=== PATIENT | female | born 1965 | race Caucasian/White ===

== ENCOUNTER 2024-02-22 00:30 | Inpatient (IN) ==
[2024-02-22 00:58] LABS: ABS Basophils 0.1 10^3/uL (0.0-0.1); ABS Eosinophils 0.1 10^3/uL (0.0-0.5); ABS Lymphocytes 3.9 10^3/uL (1.0-4.8); ABS Nucleated RBC 0.01 10^3/ul; Hematocrit 40.7 % (35-45); Hemoglobin 14.3 g/dL (11.5-14.3); Lymphocyte % 38.6 %; Mean Corpuscular Hemoglobin 30.3 pg (27-33); Mean Corpuscular Hgb Conc 35.3 g/dL (31-36); Nucleated Red Blood Cells % 0.1 %/100WBC (0.0-0.8); Platelet Count 388 10^3/uL (150-450); Red Blood Count 4.73 10^6/uL (3.63-4.92); Red Cell Distribution Width 12.7 % (12-17)
[2024-02-22 01:11] LABS: Activated Partial Thrombo Time 29.9 seconds (26.0-38.0); INR 0.91 (0.83-1.13)
[2024-02-22 01:43] LABS: Albumin 4.7 g/dL (3.2-5.2); Albumin/Globulin Ratio 1.7 (1-3); Calcium 9.8 mg/dL (8.6-10.3); Creatinine, Serum 0.72 mg/dL (0.51-0.95); Globulin 2.8 g/dL (2-4); HDL Cholesterol 70.9 mg/dL; Potassium 3.9 mmol/L (3.5-5.0); Total Bilirubin 0.5 mg/dL (0.2-1.0); Total Protein 7.5 g/dL (6.4-8.9); eGFR CKD-EPI 97.5 (>60)
[2024-02-22] MEDS: Iodixanol (CONTRAST) 320 MG/ML 100 ML SDV IV ONE (01:53)
[2024-02-22] MEDS: Aspirin EC 325 mg TAB.EC PO ONE (02:45)
[2024-02-22 03:55] LABS: Urine Appearance Clear; Urine Bilirubin Negative (Negative); Urine Blood Negative (Negative); Urine Color Light-Yellow; Urine Glucose Negative (Negative); Urine Ketones Negative (Negative); Urine Nitrite Negative (Negative); Urine Protein Negative (Negative); Urine Specific Gravity 1.041 (1.002-1.030); Urine Urobilinogen Negative (Negative)
[2024-02-22 04:04] LABS: Urine Bacteria Absent /HPF (Absent); Urine Red Blood Cell Absent /HPF (0-Trace); Urine Squamous Epithelial Cell Present /HPF (Absent); Urine White Blood Cell 1+(6-10/hpf) /HPF (0-Trace)
[2024-02-22 07:02] LABS: C Reactive Protein 11.11 mg/L (<8.01)
[2024-02-22 07:52] LABS: TSH Ultra Thyroid Stim Horm 4.17 mcIU/mL (0.34-5.60)
[2024-02-22] MEDS ORDERED: Sulfur Hexaflouride MICROSPHR 25 MG VIAL ONE (08:53)
[2024-02-22 09:23] LABS: Erythrocyte Sed Rate 16 mm/Hr (0-29)
[2024-02-22] MEDS: Aspirin EC 81 mg TAB.EC (enteric coated) PO SCH (10:50)
[2024-02-22 11:20] LABS: Albumin 4.5 g/dL (3.2-5.2); Albumin/Globulin Ratio 1.6 (1-3); Calcium 9.6 mg/dL (8.6-10.3); Creatinine, Serum 0.64 mg/dL (0.51-0.95); Globulin 2.8 g/dL (2-4); Potassium 4.1 mmol/L (3.5-5.0); Total Bilirubin 0.7 mg/dL (0.2-1.0); Total Protein 7.3 g/dL (6.4-8.9)
[2024-02-22] MEDS: Enoxaparin 40 MG/0.4 ML SYR SUBCUT SCH (12:15)
[2024-02-23 06:06] LABS: ABS Basophils 0.1 10^3/uL (0.0-0.1); ABS Lymphocytes 2.1 10^3/uL (1.0-4.8); ABS Monocytes 0.7 10^3/uL (0.0-0.9); ABS Neutrophils 8.4 10^3/uL (1.5-7.6); ABS Nucleated RBC 0.02 10^3/ul; Eosinophil % 0.2 %; Hematocrit 41.4 % (35-45); Hemoglobin 14.6 g/dL (11.5-14.3); Lymphocyte % 18.6 %; Mean Corpuscular Hgb Conc 35.2 g/dL (31-36); Mean Corpuscular Volume 85.3 fL (80-97); Mean Platelet Volume 7.1 fL (7.5-11.2); Nucleated Red Blood Cells % 0.2 %/100WBC (0.0-0.8); Platelet Count 406 10^3/uL (150-450); Red Blood Count 4.86 10^6/uL (3.63-4.92); Red Cell Distribution Width 12.5 % (12-17); White Blood Count 11.2 10^3/uL (3.8-11.8)
[2024-02-23 06:16] LABS: Calcium 9.6 mg/dL (8.6-10.3); Creatinine, Serum 0.71 mg/dL (0.51-0.95); Magnesium 2.2 mg/dL (1.9-2.7); Potassium 4.3 mmol/L (3.5-5.0); eGFR CKD-EPI 99.1 (>60)
[2024-02-23] MEDS ORDERED: Influenza vaccine *QUAD* *2023-24* 0.5 ML SYRINGE IM ONE (09:00)
[2024-02-23] MEDS ORDERED: Immune Globulin IV Order (CPOE ENTRY PROTOCOL) IV SCH (10:00)
[2024-02-23] MEDS: NS 0.9% 500 ml BAG 500 ML IV ONE (10:56)
[2024-02-23] MEDS: Acetaminophen IV 1 GM/100ML 1,000 MG/100 ML BAG IV ONE (10:56)
[2024-02-23] MEDS: Immune Glob 10%-20GM GAMMAGLIQ 20 GM, Immune Glob 10%-10GM GAMMAGLIQ 10 GM, Immune Glob... IV SCH (12:11)
[2024-02-23 12:42] LABS: Albumin 4.6 g/dL (3.2-5.2); Albumin/Globulin Ratio 1.5 (1-3); Calcium 9.9 mg/dL (8.6-10.3); Creatinine, Serum 0.71 mg/dL (0.51-0.95); Total Bilirubin 0.8 mg/dL (0.2-1.0); Total Protein 7.6 g/dL (6.4-8.9); eGFR CKD-EPI 99.1 (>60)
[2024-02-23 14:51] LABS: Adenovirus Undetected (Undetected); Bordetella parapertussis Undetected (Undetected); Bordetella pertussis Undetected (Undetected); Chlamydophila pneumoniae Undetected (Undetected); Coronavirus 229E Undetected (Undetected); Coronavirus HKU1 Undetected (Undetected); Coronavirus NL63 Undetected (Undetected); Coronavirus OC43 Undetected (Undetected); Human Metapneumovirus Undetected (Undetected); Human Rhinovirus/Enterovirus Undetected (Undetected); Influenza A Undetected (Undetected); Influenza B Undetected (Undetected); Mycoplasmoides pneumoniae Undetected (Undetected); Parainfluenza Virus 1 Undetected (Undetected); Parainfluenza Virus 2 Undetected (Undetected); Parainfluenza Virus 3 Undetected (Undetected); Parainfluenza Virus 4 Undetected (Undetected); Respiratory Syncytial Virus Undetected (Undetected); Specimen Source NASOPHARYNGEAL SWAB
[2024-02-23] MEDS: Enoxaparin 40 MG/0.4 ML SYR SUBCUT SCH (18:06)
[2024-02-23] MEDS: D5LR 1000 ml BAG 1,000 ML IV SCH (18:07)
[2024-02-23] MEDS: Acetaminophen IV 1 GM/100ML 1,000 MG/100 ML BAG IV PRN (18:17)
[2024-02-24] MEDS: Amoxicillin/Clavul ORALSYR 80 MG/ML (400 MG/5 ML) NG TUBE SCH (03:50)
[2024-02-24 06:19] LABS: Hematocrit 39.1 % (35-45); Hemoglobin 13.9 g/dL (11.5-14.3); Mean Corpuscular Hemoglobin 30.4 pg (27-33); Mean Corpuscular Hgb Conc 35.6 g/dL (31-36); Mean Corpuscular Volume 85.5 fL (80-97); Mean Platelet Volume 7.3 fL (7.5-11.2); Platelet Count 353 10^3/uL (150-450); Red Blood Count 4.57 10^6/uL (3.63-4.92); Red Cell Distribution Width 12.5 % (12-17); White Blood Count 8.1 10^3/uL (3.8-11.8)
[2024-02-24 06:39] LABS: Calcium 9.2 mg/dL (8.6-10.3); Creatinine, Serum 0.63 mg/dL (0.51-0.95); Potassium 3.7 mmol/L (3.5-5.0); eGFR CKD-EPI 103.4 (>60)
[2024-02-24] MEDS ORDERED: Etomidate 20 mg/10 ml 2 MG/ML 10 ml VIAL ONE (12:09)
[2024-02-24] MEDS ORDERED: fentaNYL 250 mcg/5 ml 50 MCG/ML 5 ml VIAL (250 MCG) ONE (12:09)
[2024-02-24] MEDS ORDERED: Midazolam 10 mg/10 ml VIAL 1 mg/ml 10 ml VIAL (10 mg) ONE (12:09)
[2024-02-24] MEDS ORDERED: Rocuronium 50 mg VIAL 10 mg/ml 5 ml VIAL (50 mg) ONE (12:09)
[2024-02-24] MEDS: Propofol 10 mg/ml 100 ML BTL 1,000 MG/100 ML BTL IV SCH (12:30)
[2024-02-24] MEDS: Propofol 10 mg/ml 100 ML BTL 1,000 MG/100 ML BTL ONE (13:02)
[2024-02-24] MEDS: Rocuronium 50 mg VIAL 10 mg/ml 5 ml VIAL (50 mg) ONE (13:02)
[2024-02-24] MEDS: NS 0.9% 500 ml BAG 500 ML IV ONE (13:05)
[2024-02-24] MEDS: Acetaminophen IV 1 GM/100ML 1,000 MG/100 ML BAG IV ONE (13:06)
[2024-02-24 13:40] LABS: Urine Appearance Clear; Urine Bilirubin Negative (Negative); Urine Blood Negative (Negative); Urine Color Yellow; Urine Glucose Negative (Negative); Urine Ketones 2+ (Negative); Urine Nitrite Negative (Negative); Urine Protein Negative (Negative); Urine Specific Gravity 1.027 (1.002-1.030); Urine Urobilinogen Negative (Negative); Urine pH 6.5 (5.0-8.0)
[2024-02-24] MEDS: fentaNYL INFUSION 50 mcg/mL VL 2,500 MCG/50 ML VIAL IV SCH (14:10)
[2024-02-24 15:58] LABS: Anaplasma phagocytophilum Negative (Negative); B. miyamotoi PCR, B Negative (Negative); Babesia divergens/MO-1 Negative (Negative); Babesia ducani Negative (Negative); Ehrlichia chaffeensis Negative (Negative); Ehrlichia ewingii/canis Negative (Negative); Ehrlichia muris eauclairensis Negative (Negative)
[2024-02-24] MEDS: Lactated Ringers 1000 ml BAG 1,000 ML IV SCH (16:30)
[2024-02-24] MEDS: Chlorhexidine MOUTHWASH 0.12% 15 ML UDC TOPICAL SCH (17:52)
[2024-02-24] MEDS: Lactated Ringers 1000 ml BAG 500 ML IV ONE (19:10)
[2024-02-24 20:16] LABS: Venous Bicarbonate HCO3 26.8 mmol/L (24-28)
[2024-02-24] MEDS: Norepinephrine 4 MG/250mL D5W 4,000 MCG/250 ML BAG IV SCH (23:52)
[2024-02-25] MEDS: Norepinephrine 4 MG/250mL D5W 4,000 MCG/250 ML BAG IV ONE (00:46)
[2024-02-25 04:37] LABS: ABS Basophils 0.1 10^3/uL (0.0-0.1); ABS Eosinophils 0.1 10^3/uL (0.0-0.5); ABS Lymphocytes 2.4 10^3/uL (1.0-4.8); ABS Monocytes 0.9 10^3/uL (0.0-0.9); ABS Neutrophils 7.6 10^3/uL (1.5-7.6); ABS Nucleated RBC 0.03 10^3/ul; Eosinophil % 0.7 %; Hemoglobin 12.5 g/dL (11.5-14.3); Mean Corpuscular Hemoglobin 30.4 pg (27-33); Mean Corpuscular Hgb Conc 34.8 g/dL (31-36); Mean Corpuscular Volume 87.3 fL (80-97); Nucleated Red Blood Cells % 0.3 %/100WBC (0.0-0.8); Platelet Count 350 10^3/uL (150-450); Red Blood Count 4.12 10^6/uL (3.63-4.92); Red Cell Distribution Width 12.6 % (12-17); White Blood Count 11.1 10^3/uL (3.8-11.8)
[2024-02-25 06:05] LABS: Anion Gap 7 mmol/L (2-16); Blood Urea Nitrogen 15 mg/dL (6-24); CO2 Carbon Dioxide 27 mmol/L (22-32); Calcium 8.6 mg/dL (8.6-10.3); Chloride 101 mmol/L (101-111); Creatinine, Serum 0.73 mg/dL (0.51-0.95); Glucose 96 mg/dL (70-100); Sodium 135 mmol/L (135-145); eGFR CKD-EPI 95.9 (>60)
[2024-02-25 08:15] LABS: Magnesium 1.9 mg/dL (1.9-2.7)
[2024-02-25 08:16] LABS: Potassium, Whole Blood 3.6 mmol/L (3.4-4.5)
[2024-02-25] MEDS: Lactated Ringers 1000 ml BAG 1,000 ML IV ONE (08:23)
[2024-02-25] MEDS: cefTRIAXone 1 gm/50 mL D5W 1 GM/50 ML BAG IV SCH (12:36)
[2024-02-25] MEDS: Haloperidol 5 mg/ml SDV IV/IM 5 MG/ML AMP IV SLOW PU PRN (14:38)
[2024-02-25] MEDS: Haloperidol 5 mg/ml SDV IV/IM 5 MG/ML AMP ONE (14:38)
[2024-02-25] MEDS: Midazolam 2 mg/2 ml VIAL 1 mg/ml 2 ml VIAL (2 mg) IV SLOW PU PRN (19:33)
[2024-02-25] MEDS: Propofol 10 mg/ml 100 ML BTL 1,000 MG/100 ML BTL IV SCH (23:53)
[2024-02-26 03:58] LABS: ABS Lymphocytes 1.5 10^3/uL (1.0-4.8); ABS Monocytes 0.8 10^3/uL (0.0-0.9); Eosinophil % 0.5 %; Hematocrit 31.7 % (35-45); Hemoglobin 11.1 g/dL (11.5-14.3); Lymphocyte % 20.9 %; Mean Corpuscular Hemoglobin 30.4 pg (27-33); Mean Corpuscular Hgb Conc 34.8 g/dL (31-36); Mean Corpuscular Volume 87.3 fL (80-97); Mean Platelet Volume 7.4 fL (7.5-11.2); Platelet Count 271 10^3/uL (150-450); Red Blood Count 3.63 10^6/uL (3.63-4.92); Red Cell Distribution Width 12.6 % (12-17); White Blood Count 7.4 10^3/uL (3.8-11.8)
[2024-02-26 04:42] LABS: Calcium 8.1 mg/dL (8.6-10.3); Creatinine, Serum 0.73 mg/dL (0.51-0.95); Magnesium 1.9 mg/dL (1.9-2.7); Potassium 3.9 mmol/L (3.5-5.0); eGFR CKD-EPI 95.9 (>60)
[2024-02-26] MEDS: NS 0.9% 500 ml BAG 500 ML IV ONE (14:18)
[2024-02-26] MEDS: Acetaminophen IV 1 GM/100ML 1,000 MG/100 ML BAG IV ONE (14:19)
[2024-02-26 19:55] LABS: Resp Rate 20
[2024-02-26 19:57] LABS: PCO2 Arterial 56 mmHg (35-45); PO2 Arterial 74 mmHg (80-100)
[2024-02-27 04:59] LABS: ABS Eosinophils 0.1 10^3/uL (0.0-0.5); ABS Lymphocytes 2.7 10^3/uL (1.0-4.8); ABS Monocytes 0.9 10^3/uL (0.0-0.9); ABS Nucleated RBC 0.02 10^3/ul; Eosinophil % 1.1 %; Hematocrit 30.7 % (35-45); Hemoglobin 11.1 g/dL (11.5-14.3); Lymphocyte % 35.1 %; Mean Corpuscular Hgb Conc 36.2 g/dL (31-36); Mean Corpuscular Volume 85.6 fL (80-97); Mean Platelet Volume 7.8 fL (7.5-11.2); Nucleated Red Blood Cells % 0.2 %/100WBC (0.0-0.8); Platelet Count 259 10^3/uL (150-450); Red Blood Count 3.59 10^6/uL (3.63-4.92); Red Cell Distribution Width 12.6 % (12-17); White Blood Count 7.7 10^3/uL (3.8-11.8)
[2024-02-27 05:44] LABS: Calcium 8.3 mg/dL (8.6-10.3); Creatinine, Serum 0.54 mg/dL (0.51-0.95); Magnesium 2.1 mg/dL (1.9-2.7); Potassium 4.1 mmol/L (3.5-5.0); eGFR CKD-EPI 107.3 (>60)
[2024-02-27] MEDS: Acetaminophen IV 1 GM/100ML 1,000 MG/100 ML BAG IV ONE (12:32)
[2024-02-27] MEDS: NS 0.9% 500 ml BAG 500 ML IV ONE (12:35)
[2024-02-27] MEDS ORDERED: Senna TAB 8.6 mg TAB PO PRN (15:16)
[2024-02-27 16:41] LABS: Body Fluid Source Cerebral Spinal
[2024-02-27 16:55] LABS: Body Fluid Appearance Clear; Body Fluid Color Colorless; CSF Tube # 4
[2024-02-27 16:58] LABS: CSF Body Fluid WBC 4 /mcL
[2024-02-27 17:06] LABS: CSF Glucose 75 mg/dL (40-70)
[2024-02-27 17:33] LABS: Body Fluid Mono 16 %; Body Fluid Total Cells Counted 200
[2024-02-28 04:58] LABS: ABS Basophils 0.1 10^3/uL (0.0-0.1); ABS Eosinophils 0.1 10^3/uL (0.0-0.5); ABS Lymphocytes 2.2 10^3/uL (1.0-4.8); ABS Monocytes 0.9 10^3/uL (0.0-0.9); ABS Neutrophils 4.5 10^3/uL (1.5-7.6); ABS Nucleated RBC 0.01 10^3/ul; Eosinophil % 1.2 %; Hematocrit 27.3 % (35-45); Hemoglobin 9.9 g/dL (11.5-14.3); Lymphocyte % 28.5 %; Mean Corpuscular Hemoglobin 31.4 pg (27-33); Mean Corpuscular Hgb Conc 36.1 g/dL (31-36); Mean Corpuscular Volume 86.9 fL (80-97); Mean Platelet Volume 8.1 fL (7.5-11.2); Nucleated Red Blood Cells % 0.2 %/100WBC (0.0-0.8); Platelet Count 315 10^3/uL (150-450); Red Blood Count 3.14 10^6/uL (3.63-4.92); Red Cell Distribution Width 12.6 % (12-17); White Blood Count 7.8 10^3/uL (3.8-11.8)
[2024-02-28 05:49] LABS: Calcium 8.2 mg/dL (8.6-10.3); Creatinine, Serum 0.48 mg/dL (0.51-0.95); Potassium 4.7 mmol/L (3.5-5.0); eGFR CKD-EPI 110.4 (>60)
[2024-02-28] MEDS ORDERED: PYRIDOSTIGMINE IV PRN (12:03)
[2024-02-28 12:32] LABS: Ferritin 486.2 ng/mL (11-307)
[2024-02-28 12:45] LABS: PCO2 Arterial 54 mmHg (35-45); PO2 Arterial 85 mmHg (80-100)
[2024-02-28] MEDS: Senna TAB 8.6 mg TAB NG TUBE PRN (21:12)
[2024-02-29 05:09] LABS: ABS Basophils 0.1 10^3/uL (0.0-0.1); ABS Eosinophils 0.1 10^3/uL (0.0-0.5); ABS Lymphocytes 3.2 10^3/uL (1.0-4.8); ABS Monocytes 0.9 10^3/uL (0.0-0.9); ABS Neutrophils 4.9 10^3/uL (1.5-7.6); ABS Nucleated RBC 0.01 10^3/ul; Eosinophil % 1.2 %; Hematocrit 26.2 % (35-45); Hemoglobin 9.5 g/dL (11.5-14.3); Lymphocyte % 34.5 %; Mean Corpuscular Hemoglobin 31.2 pg (27-33); Mean Corpuscular Hgb Conc 36.3 g/dL (31-36); Mean Corpuscular Volume 85.9 fL (80-97); Mean Platelet Volume 8.5 fL (7.5-11.2); Nucleated Red Blood Cells % 0.1 %/100WBC (0.0-0.8); Platelet Count 329 10^3/uL (150-450); Red Blood Count 3.05 10^6/uL (3.63-4.92); Red Cell Distribution Width 12.8 % (12-17); White Blood Count 9.2 10^3/uL (3.8-11.8)
[2024-02-29 05:28] LABS: Calcium 8.4 mg/dL (8.6-10.3); Creatinine, Serum 0.58 mg/dL (0.51-0.95); Potassium 3.9 mmol/L (3.5-5.0); eGFR CKD-EPI 105.5 (>60)
[2024-02-29] MEDS: guaiFENesin 100 mg/5 ml LIQ unit dose cup NG TUBE SCH (14:23)
[2024-02-29] MEDS ORDERED: PYRIDOSTIGMINE IV PRN (14:30)
[2024-02-29] MEDS: Midazolam 2 mg/2 ml VIAL 1 mg/ml 2 ml VIAL (2 mg) IV SLOW PU PRN (18:43)
[2024-02-29] MEDS: Dextran 70/Hypromellose Tears Eye Drops 15 ml BTL (for Artificials Tears) BOTH EYES PRN (19:58)
[2024-02-29] MEDS: Dexmedetomidine 1,000 MCG in NS 0.9% 250 ml 240 ML IV SCH (23:53)
[2024-03-01 05:27] LABS: ABS Basophils 0.1 10^3/uL (0.0-0.1); ABS Eosinophils 0.1 10^3/uL (0.0-0.5); ABS Lymphocytes 2.6 10^3/uL (1.0-4.8); ABS Monocytes 1.2 10^3/uL (0.0-0.9); ABS Neutrophils 5.5 10^3/uL (1.5-7.6); ABS Nucleated RBC 0.01 10^3/ul; Eosinophil % 0.7 %; Hematocrit 26.9 % (35-45); Hemoglobin 9.7 g/dL (11.5-14.3); Lymphocyte % 27.7 %; Mean Corpuscular Hemoglobin 31.4 pg (27-33); Mean Corpuscular Hgb Conc 36.3 g/dL (31-36); Mean Corpuscular Volume 86.6 fL (80-97); Nucleated Red Blood Cells % 0.1 %/100WBC (0.0-0.8); Platelet Count 374 10^3/uL (150-450); Red Cell Distribution Width 12.8 % (12-17); White Blood Count 9.4 10^3/uL (3.8-11.8)
[2024-03-01 05:56] LABS: Calcium 8.8 mg/dL (8.6-10.3); Creatinine, Serum 0.54 mg/dL (0.51-0.95); eGFR CKD-EPI 107.3 (>60)
[2024-03-01 10:44] LABS: Resp Rate 22
[2024-03-01 10:47] LABS: PCO2 Arterial 35 mmHg (35-45); PO2 Arterial 81 mmHg (80-100)
[2024-03-01] MEDS ORDERED: Propofol 10 MG/ML 20 ML BTL ONE (14:50)
[2024-03-01] MEDS ORDERED: Lidocaine 1% w EPI 1:100,000 MDV 20 ML VIAL ONE (15:32)
[2024-03-01] MEDS: Polyethylene Glycol 3350 17 GM PACKET NG TUBE PRN (20:54)
[2024-03-02 00:41] LABS: CSF Angiotension Conv Enz 1.9 U/L (0.0-2.5)
[2024-03-02 06:06] LABS: Calcium 8.7 mg/dL (8.6-10.3); Creatinine, Serum 0.44 mg/dL (0.51-0.95); Potassium 4.3 mmol/L (3.5-5.0); eGFR CKD-EPI 112.7 (>60)
[2024-03-02 06:52] LABS: ABS Basophils 0.1 10^3/uL (0.0-0.1); ABS Eosinophils 0.1 10^3/uL (0.0-0.5); ABS Lymphocytes 1.3 10^3/uL (1.0-4.8); ABS Monocytes 0.8 10^3/uL (0.0-0.9); ABS Neutrophils 5.4 10^3/uL (1.5-7.6); Eosinophil % 1.5 %; Hematocrit 27.9 % (35-45); Lymphocyte % 16.5 %; Mean Corpuscular Hemoglobin 31.1 pg (27-33); Mean Corpuscular Hgb Conc 35.8 g/dL (31-36); Mean Corpuscular Volume 86.7 fL (80-97); Mean Platelet Volume 8.2 fL (7.5-11.2); Nucleated Red Blood Cells % 0.1 %/100WBC (0.0-0.8); Platelet Count 375 10^3/uL (150-450); Red Blood Count 3.22 10^6/uL (3.63-4.92); Red Cell Distribution Width 12.6 % (12-17); White Blood Count 7.7 10^3/uL (3.8-11.8)
[2024-03-02] MEDS: NS 0.9% 1000 ml BAG 1,000 ML IV SCH (09:37)
[2024-03-02] MEDS: Midazolam PREMIXBAG 1 MG/ML NS 100 ML IV SCH (11:40)
[2024-03-02] MEDS: Midazolam PREMIXBAG 1 MG/ML NS 100 ML IV ONE (11:50)
[2024-03-02] MEDS: Furosemide 40 mg/4 ml IV VIAL IV ONE (13:01)
[2024-03-02] MEDS: Enoxaparin 40 MG/0.4 ML SYR SUBCUT SCH (13:01)
[2024-03-02] MEDS: Propofol 10 mg/ml 100 ML BTL 1,000 MG/100 ML BTL IV SCH (16:13)
[2024-03-02] MEDS: Propofol 10 mg/ml 100 ML BTL 1,000 MG/100 ML BTL ONE (16:37)
[2024-03-03 05:56] LABS: Hematocrit 24.7 % (35-45); Hemoglobin 9.1 g/dL (11.5-14.3); Mean Corpuscular Hemoglobin 31.7 pg (27-33); Mean Corpuscular Hgb Conc 36.8 g/dL (31-36); Mean Corpuscular Volume 86.1 fL (80-97); Mean Platelet Volume 8.1 fL (7.5-11.2); Platelet Count 345 10^3/uL (150-450); Red Blood Count 2.87 10^6/uL (3.63-4.92); Red Cell Distribution Width 13.1 % (12-17); White Blood Count 13.4 10^3/uL (3.8-11.8)
[2024-03-03 06:15] LABS: ABS Basophils 0.1 10^3/uL (0.0-0.1); ABS Eosinophils 0.1 10^3/uL (0.0-0.5); ABS Monocytes 1.7 10^3/uL (0.0-0.9); ABS Neutrophils 9.6 10^3/uL (1.5-7.6); ABS Nucleated RBC 0.02 10^3/ul; Eosinophil % 0.6 %; Nucleated Red Blood Cells % 0.1 %/100WBC (0.0-0.8)
[2024-03-03 06:50] LABS: Calcium 8.1 mg/dL (8.6-10.3); Creatinine, Serum 0.48 mg/dL (0.51-0.95); Magnesium 2.2 mg/dL (1.9-2.7); Phosphorus 4.2 mg/dL (2.5-5.0); eGFR CKD-EPI 110.4 (>60)
[2024-03-03] MEDS: Famotidine SUSP ORALSYR 8 MG/ML PO SCH (09:31)
[2024-03-03] MEDS: Furosemide 40 mg/4 ml IV VIAL IV ONE (09:48)
[2024-03-03 10:33] LABS: Myoglobin 100.3 ng/mL (14.3-65.8)
[2024-03-03] MEDS: Methylnaltrexone SQ (NF) 12 MG/0.6 ML VIAL SUBCUT ONE ×2 (11:45→12:19)
[2024-03-04 04:09] LABS: Hematocrit 29.3 % (35-45); Hemoglobin 10.3 g/dL (11.5-14.3); Mean Corpuscular Hemoglobin 30.7 pg (27-33); Mean Corpuscular Hgb Conc 35.3 g/dL (31-36); Mean Corpuscular Volume 86.9 fL (80-97); Platelet Count 426 10^3/uL (150-450); Red Blood Count 3.37 10^6/uL (3.63-4.92); Red Cell Distribution Width 13.6 % (12-17); White Blood Count 15.2 10^3/uL (3.8-11.8)
[2024-03-04 04:18] LABS: ABS Basophils 0.1 10^3/uL (0.0-0.1); ABS Eosinophils 0.1 10^3/uL (0.0-0.5); ABS Lymphocytes 3.9 10^3/uL (1.0-4.8); ABS Neutrophils 9.1 10^3/uL (1.5-7.6); ABS Nucleated RBC 0.04 10^3/ul; Eosinophil % 0.8 %; Lymphocyte % 25.4 %; Nucleated Red Blood Cells % 0.2 %/100WBC (0.0-0.8)
[2024-03-04] MEDS: Heparin DRIP 25,000 UNITS BAG 25,000 UNITS/250 ML BAG IV SCH (05:01)
[2024-03-04 05:12] LABS: Calcium 8.8 mg/dL (8.6-10.3); Creatinine, Serum 0.58 mg/dL (0.51-0.95); Magnesium 2.3 mg/dL (1.9-2.7); eGFR CKD-EPI 105.5 (>60)
[2024-03-04] MEDS: Heparin 5000 UNITS/ML 1 mL VIAL IV SCH (05:19)
[2024-03-04] MEDS: Midazolam 2 mg/2 ml VIAL 1 mg/ml 2 ml VIAL (2 mg) IV SLOW PU ONE (05:30)
[2024-03-04] MEDS: Midazolam 2 mg/2 ml VIAL 1 mg/ml 2 ml VIAL (2 mg) ONE (06:09)
[2024-03-04 06:25] LABS: High Sensitivity Troponin 1 Hr 32 pg/mL (<15)
[2024-03-04] MEDS: Lactulose 30 ml UDC NG TUBE ONE (14:48)
[2024-03-04] MEDS ORDERED: Sulfur Hexaflouride MICROSPHR 25 MG VIAL ONE (15:14)
[2024-03-04 17:04] LABS: High Sensitivity Troponin 1 Hr 130 pg/mL (<15)
[2024-03-05] MEDS: Iohexol 350 (CONTRAST) 500 ML MDV IV ONE (01:40)
[2024-03-05 05:35] LABS: ABS Basophils 0.1 10^3/uL (0.0-0.1); ABS Monocytes 1.3 10^3/uL (0.0-0.9); ABS Nucleated RBC 0.02 10^3/ul; Eosinophil % 0.3 %; Hematocrit 25.4 % (35-45); Hemoglobin 9.1 g/dL (11.5-14.3); Lymphocyte % 17.3 %; Mean Corpuscular Hemoglobin 31.8 pg (27-33); Mean Corpuscular Hgb Conc 35.9 g/dL (31-36); Mean Corpuscular Volume 88.6 fL (80-97); Mean Platelet Volume 7.8 fL (7.5-11.2); Nucleated Red Blood Cells % 0.1 %/100WBC (0.0-0.8); Platelet Count 370 10^3/uL (150-450); Red Blood Count 2.87 10^6/uL (3.63-4.92); Red Cell Distribution Width 13.9 % (12-17); White Blood Count 11.3 10^3/uL (3.8-11.8)
[2024-03-05 05:56] LABS: Calcium 8.9 mg/dL (8.6-10.3); Creatinine, Serum 0.57 mg/dL (0.51-0.95); Magnesium 2.4 mg/dL (1.9-2.7); Potassium 4.1 mmol/L (3.5-5.0); eGFR CKD-EPI 105.9 (>60)
[2024-03-05] MEDS ORDERED: Enoxaparin 40 MG/0.4 ML SYR SUBCUT SCH (06:00)
[2024-03-05] MEDS: Enoxaparin 40 MG/0.4 ML SYR SUBCUT SCH (11:55)
[2024-03-05] MEDS ORDERED: PHENYLEPHRINE DRIP IVPREMIX 50 MG/250 ML BAG IV SCH (15:00)
[2024-03-05 18:12] LABS: AGNA-1, CSF Negative (Negative); Amphiphysin Ab, CSF Negative (Negative); CRMP-5-IgG, CSF Negative (Negative); IFA Notes None.; PCA-1, CSF Negative (Negative); PCA-2, CSF Negative (Negative); PCA-Tr, CSF Negative (Negative)
[2024-03-06 04:26] LABS: ABS Basophils 0.1 10^3/uL (0.0-0.1); ABS Eosinophils 0.1 10^3/uL (0.0-0.5); ABS Lymphocytes 2.3 10^3/uL (1.0-4.8); ABS Monocytes 1.3 10^3/uL (0.0-0.9); ABS Neutrophils 7.7 10^3/uL (1.5-7.6); ABS Nucleated RBC 0.01 10^3/ul; Eosinophil % 0.5 %; Hematocrit 25.6 % (35-45); Lymphocyte % 19.8 %; Mean Corpuscular Hemoglobin 31.1 pg (27-33); Mean Corpuscular Hgb Conc 35.2 g/dL (31-36); Mean Corpuscular Volume 88.4 fL (80-97); Mean Platelet Volume 7.9 fL (7.5-11.2); Nucleated Red Blood Cells % 0.1 %/100WBC (0.0-0.8); Platelet Count 362 10^3/uL (150-450); Red Cell Distribution Width 14.5 % (12-17); White Blood Count 11.4 10^3/uL (3.8-11.8)
[2024-03-06 04:41] LABS: Calcium 8.4 mg/dL (8.6-10.3); Creatinine, Serum 0.55 mg/dL (0.51-0.95); Potassium 3.8 mmol/L (3.5-5.0); eGFR CKD-EPI 106.8 (>60)
[2024-03-06] MEDS: Phenylephrine DRIP 0.2 MG/ML in NS 0.9% 250 ML (PHA mix) IV SCH (08:33)
[2024-03-06] MEDS: Ondansetron 4 mg VIAL 2 MG/ML 2 ml VIAL IV PRN (17:58)
[2024-03-07 05:27] LABS: ABS Basophils 0.1 10^3/uL (0.0-0.1); ABS Eosinophils 0.1 10^3/uL (0.0-0.5); ABS Monocytes 1.1 10^3/uL (0.0-0.9); ABS Neutrophils 7.2 10^3/uL (1.5-7.6); ABS Nucleated RBC 0.01 10^3/ul; Eosinophil % 1.3 %; Hematocrit 25.4 % (35-45); Hemoglobin 9.1 g/dL (11.5-14.3); Mean Corpuscular Hemoglobin 31.7 pg (27-33); Mean Corpuscular Hgb Conc 35.7 g/dL (31-36); Mean Platelet Volume 8.1 fL (7.5-11.2); Nucleated Red Blood Cells % 0.1 %/100WBC (0.0-0.8); Platelet Count 382 10^3/uL (150-450); Red Blood Count 2.86 10^6/uL (3.63-4.92); White Blood Count 10.5 10^3/uL (3.8-11.8)
[2024-03-07 06:13] LABS: Calcium 8.8 mg/dL (8.6-10.3); Creatinine, Serum 0.49 mg/dL (0.51-0.95); Potassium 3.9 mmol/L (3.5-5.0); eGFR CKD-EPI 109.9 (>60)
[2024-03-07] MEDS ORDERED: Immune Globulin IV Order (CPOE ENTRY PROTOCOL) IV SCH (13:00)
[2024-03-07] MEDS: NS 0.9% 500 ml BAG 500 ML IV ONE (14:24)
[2024-03-07] MEDS: Acetaminophen IV 1 GM/100ML 1,000 MG/100 ML BAG IV ONE (14:58)
[2024-03-07] MEDS: [UNRECOGNIZED DRUG - OTHER] IV SCH (15:54)
[2024-03-07] MEDS: IMMUNE GLOBULIN IV SCH (15:54)
[2024-03-08 05:28] LABS: ABS Eosinophils 0.1 10^3/uL (0.0-0.5); ABS Lymphocytes 1.7 10^3/uL (1.0-4.8); ABS Monocytes 1.1 10^3/uL (0.0-0.9); ABS Neutrophils 6.7 10^3/uL (1.5-7.6); ABS Nucleated RBC 0.01 10^3/ul; Eosinophil % 1.1 %; Hematocrit 25.4 % (35-45); Hemoglobin 9.2 g/dL (11.5-14.3); Lymphocyte % 17.6 %; Mean Corpuscular Hemoglobin 32.1 pg (27-33); Mean Corpuscular Hgb Conc 36.2 g/dL (31-36); Mean Corpuscular Volume 88.5 fL (80-97); Mean Platelet Volume 7.4 fL (7.5-11.2); Nucleated Red Blood Cells % 0.1 %/100WBC (0.0-0.8); Platelet Count 356 10^3/uL (150-450); Red Blood Count 2.86 10^6/uL (3.63-4.92); White Blood Count 9.7 10^3/uL (3.8-11.8)
[2024-03-08 06:42] LABS: Calcium 8.3 mg/dL (8.6-10.3); Creatinine, Serum 0.49 mg/dL (0.51-0.95); Potassium 4.2 mmol/L (3.5-5.0); eGFR CKD-EPI 109.9 (>60)
[2024-03-08] MEDS: Acetaminophen IV 1 GM/100ML 1,000 MG/100 ML BAG IV ONE (17:15)
[2024-03-08] MEDS: NS 0.9% 500 ml BAG 500 ML IV ONE (17:15)
[2024-03-09 04:28] LABS: ABS Basophils 0.1 10^3/uL (0.0-0.1); ABS Eosinophils 0.1 10^3/uL (0.0-0.5); ABS Neutrophils 4.3 10^3/uL (1.5-7.6); ABS Nucleated RBC 0.01 10^3/ul; Eosinophil % 1.2 %; Hematocrit 25.7 % (35-45); Lymphocyte % 26.6 %; Mean Corpuscular Hemoglobin 31.4 pg (27-33); Mean Corpuscular Hgb Conc 34.9 g/dL (31-36); Mean Corpuscular Volume 90.1 fL (80-97); Mean Platelet Volume 7.6 fL (7.5-11.2); Nucleated Red Blood Cells % 0.1 %/100WBC (0.0-0.8); Platelet Count 377 10^3/uL (150-450); Red Blood Count 2.86 10^6/uL (3.63-4.92); Red Cell Distribution Width 15.9 % (12-17); White Blood Count 7.4 10^3/uL (3.8-11.8)
[2024-03-09 04:57] LABS: Calcium 8.4 mg/dL (8.6-10.3); Creatinine, Serum 0.51 mg/dL (0.51-0.95); Magnesium 2.1 mg/dL (1.9-2.7); Potassium 3.9 mmol/L (3.5-5.0); eGFR CKD-EPI 108.8 (>60)
[2024-03-09] MEDS: Dextran 70/Hypromellose Tears Eye Drops 15 ml BTL (for Artificials Tears) BOTH EYES PRN (12:40)
[2024-03-09] MEDS: NS 0.9% 500 ml BAG 500 ML IV SCH (13:59)
[2024-03-09] MEDS: Metoprolol Tartrate 5 mg VIAL 5 ml VIAL (1 mg/ml) IV ONE (22:50)
[2024-03-10] MEDS: Metoprolol Tartrate 5 mg VIAL 5 ml VIAL (1 mg/ml) IV ONE (03:26)
[2024-03-10] MEDS: Haloperidol 5 mg/ml SDV IV/IM 5 MG/ML AMP IV SLOW PU ONE (03:26)
[2024-03-10 08:12] LABS: ABS Basophils 0.1 10^3/uL (0.0-0.1); ABS Lymphocytes 1.3 10^3/uL (1.0-4.8); ABS Neutrophils 7.8 10^3/uL (1.5-7.6); ABS Nucleated RBC 0.01 10^3/ul; Hematocrit 27.7 % (35-45); Hemoglobin 9.8 g/dL (11.5-14.3); Lymphocyte % 12.5 %; Mean Corpuscular Hemoglobin 32.4 pg (27-33); Mean Corpuscular Hgb Conc 35.4 g/dL (31-36); Mean Corpuscular Volume 91.3 fL (80-97); Mean Platelet Volume 7.7 fL (7.5-11.2); Nucleated Red Blood Cells % 0.1 %/100WBC (0.0-0.8); Platelet Count 479 10^3/uL (150-450); Red Blood Count 3.03 10^6/uL (3.63-4.92); Red Cell Distribution Width 15.9 % (12-17); White Blood Count 10.1 10^3/uL (3.8-11.8)
[2024-03-10 09:01] LABS: Creatinine, Serum 0.51 mg/dL (0.51-0.95); Potassium 4.2 mmol/L (3.5-5.0); eGFR CKD-EPI 108.8 (>60)
[2024-03-11 05:14] LABS: ABS Basophils 0.1 10^3/uL (0.0-0.1); ABS Lymphocytes 1.8 10^3/uL (1.0-4.8); ABS Neutrophils 7.1 10^3/uL (1.5-7.6); ABS Nucleated RBC 0.03 10^3/ul; Eosinophil % 0.4 %; Hematocrit 25.1 % (35-45); Hemoglobin 8.9 g/dL (11.5-14.3); Mean Corpuscular Hemoglobin 32.7 pg (27-33); Mean Corpuscular Hgb Conc 35.5 g/dL (31-36); Mean Corpuscular Volume 92.2 fL (80-97); Mean Platelet Volume 7.6 fL (7.5-11.2); Nucleated Red Blood Cells % 0.3 %/100WBC (0.0-0.8); Platelet Count 445 10^3/uL (150-450); Red Blood Count 2.73 10^6/uL (3.63-4.92); Red Cell Distribution Width 16.5 % (12-17); White Blood Count 10.1 10^3/uL (3.8-11.8)
[2024-03-11 06:49] LABS: Calcium 8.8 mg/dL (8.6-10.3); Creatinine, Serum 0.55 mg/dL (0.51-0.95); Magnesium 2.1 mg/dL (1.9-2.7); Potassium 3.8 mmol/L (3.5-5.0); eGFR CKD-EPI 106.8 (>60)
[2024-03-12] MEDS: Carboxymethylcellulose/Glyceri 10 ML OPHTH.GEL lubricant eye gel BOTH EYES SCH (21:34)
[2024-03-13 10:20] VITALS: BP 136/63
== END 2024-03-13 11:45 | DRG 4 ==
LOC: EDHOLD 00:30 → ED 00:30 → SUATTDRO 03:23 → MEDTELE 07:45 → ICU 10:00 → SUATTDRO 02-24 11:25 → ICU 02-24 15:43 → SSU 03-09 16:47
PROVIDERS: ADMIT Internal Medicine; ATTEND Internal Medicine

== ENCOUNTER 2024-03-13 08:44 | Inpatient (IN) ==
[2024-03-13] MEDS ORDERED: Docusate LIQ 100 MG/10 ML UDC G TUBE PRN (13:26)
[2024-03-13] MEDS ORDERED: Magnesium Hydroxide LIQ 30 ML UDC NG TUBE PRN (13:27)
[2024-03-13] MEDS: Carboxymethylcellulose/Glyceri 10 ML OPHTH.GEL lubricant eye gel BOTH EYES SCH (20:22)
[2024-03-13] MEDS: Famotidine SUSP ORALSYR 8 MG/ML G TUBE SCH (20:24)
[2024-03-14] MEDS: Enoxaparin 40 MG/0.4 ML SYR SUBCUT SCH (10:01)
[2024-03-14] MEDS ORDERED: Magnesium Hydroxide LIQ 30 ML UDC PO PRN (15:43)
[2024-03-14] MEDS ORDERED: Senna TAB 8.6 mg TAB PO PRN (15:44)
[2024-03-14] MEDS: Dextran 70/Hypromellose Tears Eye Drops 15 ml BTL (for Artificials Tears) BOTH EYES PRN (19:33)
[2024-03-15 07:07] LABS: ABS Basophils 0.1 10^3/uL (0.0-0.1); ABS Lymphocytes 2.3 10^3/uL (1.0-4.8); ABS Monocytes 0.9 10^3/uL (0.0-0.9); ABS Neutrophils 3.1 10^3/uL (1.5-7.6); ABS Nucleated RBC 0.01 10^3/ul; Eosinophil % 0.1 %; Hematocrit 21.9 % (35-45); Hemoglobin 7.5 g/dL (11.5-14.3); Lymphocyte % 36.3 %; Mean Corpuscular Hemoglobin 31.6 pg (27-33); Mean Corpuscular Hgb Conc 34.3 g/dL (31-36); Mean Corpuscular Volume 92.1 fL (80-97); Mean Platelet Volume 8.5 fL (7.5-11.2); Nucleated Red Blood Cells % 0.1 %/100WBC (0.0-0.8); Platelet Count 204 10^3/uL (150-450); Red Blood Count 2.38 10^6/uL (3.63-4.92); White Blood Count 6.4 10^3/uL (3.8-11.8)
[2024-03-15 07:13] LABS: Albumin 2.8 g/dL (3.2-5.2); Albumin/Globulin Ratio 0.6 (1-3); Calcium 8.4 mg/dL (8.6-10.3); Creatinine, Serum 0.59 mg/dL (0.51-0.95); Globulin 4.6 g/dL (2-4); Potassium 3.5 mmol/L (3.5-5.0); Total Bilirubin 0.8 mg/dL (0.2-1.0); Total Protein 7.4 g/dL (6.4-8.9); eGFR CKD-EPI 105.1 (>60)
[2024-03-15 08:30] LABS: Immature Retic Fraction 0.52
[2024-03-15 08:31] LABS: RBC Retic Count 2.38 10^6/ul (3.63-4.92)
[2024-03-15 08:32] LABS: Corrected Retic Count 5.6 % (0.5-2.2); Hematocrit for Retic CNT 21.9 % (35-45)
[2024-03-15 08:37] LABS: Folate 16.51 ng/mL (5.90-24.80)
[2024-03-15 09:33] LABS: Ferritin 1594.7 ng/mL (11-307)
[2024-03-16 06:17] LABS: ABS Basophils 0.1 10^3/uL (0.0-0.1); ABS Lymphocytes 2.6 10^3/uL (1.0-4.8); ABS Neutrophils 4.4 10^3/uL (1.5-7.6); ABS Nucleated RBC 0.01 10^3/ul; Eosinophil % 0.1 %; Hematocrit 19.9 % (35-45); Hemoglobin 7.1 g/dL (11.5-14.3); Lymphocyte % 32.1 %; Mean Corpuscular Hemoglobin 32.6 pg (27-33); Mean Corpuscular Hgb Conc 35.7 g/dL (31-36); Mean Corpuscular Volume 91.5 fL (80-97); Mean Platelet Volume 8.5 fL (7.5-11.2); Nucleated Red Blood Cells % 0.1 %/100WBC (0.0-0.8); Platelet Count 198 10^3/uL (150-450); Red Blood Count 2.18 10^6/uL (3.63-4.92); Red Cell Distribution Width 16.5 % (12-17); White Blood Count 8.1 10^3/uL (3.8-11.8)
[2024-03-16 06:48] LABS: Albumin 2.9 g/dL (3.2-5.2); Albumin/Globulin Ratio 0.7 (1-3); Calcium 8.5 mg/dL (8.6-10.3); Creatinine, Serum 0.53 mg/dL (0.51-0.95); Globulin 4.3 g/dL (2-4); Potassium 3.4 mmol/L (3.5-5.0); Total Bilirubin 0.7 mg/dL (0.2-1.0); Total Protein 7.2 g/dL (6.4-8.9); eGFR CKD-EPI 107.8 (>60)
[2024-03-16] MEDS: Potassium Chlor 20 meq TAB.ER PO SCH (14:38)
[2024-03-16] MEDS: Multivitamins/Minerals TAB PO SCH (14:38)
[2024-03-17 07:08] LABS: ABS Lymphocytes 2.6 10^3/uL (1.0-4.8); ABS Monocytes 1.3 10^3/uL (0.0-0.9); ABS Neutrophils 8.4 10^3/uL (1.5-7.6); ABS Nucleated RBC 0.02 10^3/ul; Corrected Retic Count 3.9 % (0.5-1.5); Eosinophil % 0.1 %; Hematocrit 21.4 % (35-45); Hematocrit for Retic CNT 21.4 % (35-45); Hemoglobin 7.3 g/dL (11.5-14.3); Lymphocyte % 21.4 %; Mean Corpuscular Hemoglobin 31.1 pg (27-33); Mean Corpuscular Hgb Conc 34.1 g/dL (31-36); Mean Corpuscular Volume 91.2 fL (80-97); Mean Platelet Volume 8.3 fL (7.5-11.2); Nucleated Red Blood Cells % 0.2 %/100WBC (0.0-0.8); Platelet Count 247 10^3/uL (150-450); RBC Retic Count 2.35 10^6/ul (3.63-4.92); Red Blood Count 2.35 10^6/uL (3.63-4.92); Red Cell Distribution Width 16.8 % (12-17); White Blood Count 12.4 10^3/uL (3.8-11.8)
[2024-03-17 07:47] LABS: Albumin/Globulin Ratio 0.6 (1-3); Calcium 8.4 mg/dL (8.6-10.3); Creatinine, Serum 0.6 mg/dL (0.51-0.95); Globulin 4.7 g/dL (2-4); Potassium 3.9 mmol/L (3.5-5.0); Total Bilirubin 0.9 mg/dL (0.2-1.0); Total Protein 7.7 g/dL (6.4-8.9); eGFR CKD-EPI 104.6 (>60)
[2024-03-17] MEDS: cefTRIAXone 1 gm/50 mL D5W 1 GM/50 ML BAG IV SCH (12:10)
[2024-03-19 06:05] LABS: ABS Basophils 0.1 10^3/uL (0.0-0.1); ABS Eosinophils 0.1 10^3/uL (0.0-0.5); ABS Lymphocytes 2.9 10^3/uL (1.0-4.8); ABS Neutrophils 6.2 10^3/uL (1.5-7.6); ABS Nucleated RBC 0.02 10^3/ul; Eosinophil % 0.6 %; Hematocrit 21.9 % (35-45); Hemoglobin 7.7 g/dL (11.5-14.3); Mean Corpuscular Hemoglobin 32.3 pg (27-33); Mean Corpuscular Volume 92.2 fL (80-97); Mean Platelet Volume 7.8 fL (7.5-11.2); Nucleated Red Blood Cells % 0.2 %/100WBC (0.0-0.8); Platelet Count 365 10^3/uL (150-450); Red Blood Count 2.38 10^6/uL (3.63-4.92); Red Cell Distribution Width 17.1 % (12-17); White Blood Count 10.2 10^3/uL (3.8-11.8)
[2024-03-19 09:23] LABS: Albumin 2.9 g/dL (3.2-5.2); Albumin/Globulin Ratio 0.6 (1-3); Calcium 8.4 mg/dL (8.6-10.3); Creatinine, Serum 0.6 mg/dL (0.51-0.95); Globulin 4.9 g/dL (2-4); Potassium 4.2 mmol/L (3.5-5.0); Total Bilirubin 0.7 mg/dL (0.2-1.0); Total Protein 7.8 g/dL (6.4-8.9); eGFR CKD-EPI 104.6 (>60)
[2024-03-20 05:17] LABS: Corrected Retic Count 5.9 % (0.5-1.5); Hematocrit 21.7 % (35-45); Hematocrit for Retic CNT 21.7 % (35-45); Hemoglobin 7.5 g/dL (11.5-14.3); Immature Retic Fraction 0.64; Mean Corpuscular Hemoglobin 31.7 pg (27-33); Mean Corpuscular Hgb Conc 34.3 g/dL (31-36); Mean Corpuscular Volume 92.6 fL (80-97); Mean Platelet Volume 7.4 fL (7.5-11.2); Platelet Count 370 10^3/uL (150-450); RBC Retic Count 2.35 10^6/ul (3.63-4.92); Red Blood Count 2.35 10^6/uL (3.63-4.92); Red Cell Distribution Width 17.8 % (12-17); White Blood Count 12.5 10^3/uL (3.8-11.8)
[2024-03-21 06:24] LABS: ABS Basophils 0.1 10^3/uL (0.0-0.1); ABS Lymphocytes 2.8 10^3/uL (1.0-4.8); ABS Monocytes 0.6 10^3/uL (0.0-0.9); ABS Neutrophils 4.1 10^3/uL (1.5-7.6); ABS Nucleated RBC 0.01 10^3/ul; Eosinophil % 0.4 %; Hematocrit 26.2 % (35-45); Lymphocyte % 37.2 %; Mean Corpuscular Hemoglobin 31.9 pg (27-33); Mean Corpuscular Hgb Conc 34.5 g/dL (31-36); Mean Corpuscular Volume 92.3 fL (80-97); Mean Platelet Volume 7.4 fL (7.5-11.2); Nucleated Red Blood Cells % 0.2 %/100WBC (0.0-0.8); Platelet Count 409 10^3/uL (150-450); Red Blood Count 2.84 10^6/uL (3.63-4.92); Red Cell Distribution Width 17.9 % (12-17); White Blood Count 7.6 10^3/uL (3.8-11.8)
[2024-03-22 06:26] LABS: ABS Basophils 0.1 10^3/uL (0.0-0.1); ABS Lymphocytes 3.3 10^3/uL (1.0-4.8); ABS Monocytes 0.7 10^3/uL (0.0-0.9); ABS Neutrophils 4.6 10^3/uL (1.5-7.6); ABS Nucleated RBC 0.01 10^3/ul; Eosinophil % 0.2 %; Hematocrit 23.1 % (35-45); Hemoglobin 7.9 g/dL (11.5-14.3); Lymphocyte % 37.7 %; Mean Corpuscular Hemoglobin 31.6 pg (27-33); Mean Corpuscular Hgb Conc 34.4 g/dL (31-36); Mean Corpuscular Volume 92.1 fL (80-97); Mean Platelet Volume 7.3 fL (7.5-11.2); Nucleated Red Blood Cells % 0.1 %/100WBC (0.0-0.8); Platelet Count 457 10^3/uL (150-450); Red Blood Count 2.51 10^6/uL (3.63-4.92); Red Cell Distribution Width 17.9 % (12-17); White Blood Count 8.7 10^3/uL (3.8-11.8)
[2024-03-22 07:10] LABS: Albumin/Globulin Ratio 0.7 (1-3); Calcium 8.7 mg/dL (8.6-10.3); Creatinine, Serum 0.57 mg/dL (0.51-0.95); Globulin 4.6 g/dL (2-4); Potassium 3.9 mmol/L (3.5-5.0); Total Bilirubin 0.6 mg/dL (0.2-1.0); Total Protein 7.6 g/dL (6.4-8.9); eGFR CKD-EPI 105.9 (>60)
[2024-03-23 12:15] LABS: ABS Lymphocytes 1.3 10^3/uL (1.0-4.8); ABS Monocytes 0.4 10^3/uL (0.0-0.9); ABS Neutrophils 6.6 10^3/uL (1.5-7.6); ABS Nucleated RBC 0.01 10^3/ul; Corrected Retic Count 4.6 % (0.5-1.5); Eosinophil % 0.1 %; Hematocrit 27.3 % (35-45); Hematocrit for Retic CNT 27.3 % (35-45); Hemoglobin 9.2 g/dL (11.5-14.3); Lymphocyte % 15.4 %; Mean Corpuscular Hemoglobin 31.3 pg (27-33); Mean Corpuscular Hgb Conc 33.8 g/dL (31-36); Mean Corpuscular Volume 92.6 fL (80-97); Mean Platelet Volume 7.1 fL (7.5-11.2); Nucleated Red Blood Cells % 0.1 %/100WBC (0.0-0.8); Platelet Count 524 10^3/uL (150-450); RBC Retic Count 2.95 10^6/ul (3.63-4.92); Red Blood Count 2.95 10^6/uL (3.63-4.92); Red Cell Distribution Width 17.7 % (12-17); White Blood Count 8.3 10^3/uL (3.8-11.8)
[2024-03-23 12:33] LABS: Albumin 3.5 g/dL (3.2-5.2); Albumin/Globulin Ratio 0.7 (1-3); Calcium 9.5 mg/dL (8.6-10.3); Creatinine, Serum 0.6 mg/dL (0.51-0.95); Globulin 5.1 g/dL (2-4); Potassium 4.4 mmol/L (3.5-5.0); Total Bilirubin 0.6 mg/dL (0.2-1.0); Total Protein 8.6 g/dL (6.4-8.9); eGFR CKD-EPI 104.6 (>60)
[2024-03-24 05:22] LABS: ABS Basophils 0.1 10^3/uL (0.0-0.1); ABS Lymphocytes 3.4 10^3/uL (1.0-4.8); ABS Monocytes 0.6 10^3/uL (0.0-0.9); ABS Nucleated RBC 0.01 10^3/ul; Eosinophil % 0.3 %; Hematocrit 25.1 % (35-45); Hemoglobin 8.7 g/dL (11.5-14.3); Lymphocyte % 48.4 %; Mean Corpuscular Hemoglobin 32.2 pg (27-33); Mean Corpuscular Hgb Conc 34.6 g/dL (31-36); Mean Corpuscular Volume 93.1 fL (80-97); Mean Platelet Volume 6.9 fL (7.5-11.2); Nucleated Red Blood Cells % 0.1 %/100WBC (0.0-0.8); Platelet Count 461 10^3/uL (150-450); Red Cell Distribution Width 17.7 % (12-17)
[2024-03-26 06:17] LABS: ABS Basophils 0.1 10^3/uL (0.0-0.1); ABS Lymphocytes 2.3 10^3/uL (1.0-4.8); ABS Monocytes 0.6 10^3/uL (0.0-0.9); ABS Neutrophils 6.2 10^3/uL (1.5-7.6); ABS Nucleated RBC 0.01 10^3/ul; Corrected Retic Count 3.4 % (0.5-1.5); Eosinophil % 0.2 %; Hematocrit 27.7 % (35-45); Hematocrit for Retic CNT 27.7 % (35-45); Hemoglobin 9.6 g/dL (11.5-14.3); Immature Retic Fraction 0.54; Lymphocyte % 24.8 %; Mean Corpuscular Hemoglobin 32.2 pg (27-33); Mean Corpuscular Hgb Conc 34.6 g/dL (31-36); Mean Corpuscular Volume 93.2 fL (80-97); Mean Platelet Volume 6.6 fL (7.5-11.2); Nucleated Red Blood Cells % 0.1 %/100WBC (0.0-0.8); Platelet Count 441 10^3/uL (150-450); RBC Retic Count 2.97 10^6/ul (3.63-4.92); Red Blood Count 2.97 10^6/uL (3.63-4.92); White Blood Count 9.1 10^3/uL (3.8-11.8)
[2024-03-26 06:46] LABS: Albumin 3.4 g/dL (3.2-5.2); Albumin/Globulin Ratio 0.8 (1-3); Calcium 9.1 mg/dL (8.6-10.3); Creatinine, Serum 0.62 mg/dL (0.51-0.95); Globulin 4.2 g/dL (2-4); Potassium 3.9 mmol/L (3.5-5.0); Total Bilirubin 0.6 mg/dL (0.2-1.0); Total Protein 7.6 g/dL (6.4-8.9); eGFR CKD-EPI 103.8 (>60)
[2024-03-27 06:15] VITALS: BP 144/79
== END 2024-03-27 11:55 | disposition home or self-care (01) | DRG 49 ==
LOC: PMRU 12:21
PROVIDERS: ADMIT Physical Medicine & Rehabilitation; ATTEND Physical Medicine & Rehabilitation